=== PATIENT | female | born 1945 | race Caucasian/White ===

== ENCOUNTER → 2017-06-26 | Outpatient (CLI) | payer OTHER ==
[~2017-06-26] MED LIST: ALBU90OI INH; ALEN70 PO; ASCO500 PO; ASPI81CH PO; BUSP5 PO; Bystolic2.5 MG; CHOL10002 PO; CLON.1 PO; Hydroxyzine HCl50 MG PO; INSUASPI SC; INSULANPEN SC; KETO.5OPSO BOTHEYES; LEVSOD125 PO; LEVSOD88 PO; LORA10 PO; LOSA25 PO; Lantus100 UNIT/1 SQ; METF500 PO; NAPR500 PO; NICO14TP TOP; Novolog100 UNIT/2 SC; Omeprazole20 M1; PRAV20 PO; Pravachol80 MG PO; TRAZ100 PO; Ventolin/Prove6.7 GM INH
== END | disposition home or self-care (01) ==
LOC: LAB UCHC 11:15
DX: N39.0 Urinary tract infection, site not specified (principal)
CPT/HCPCS: 87077; 87086; 87186

== ENCOUNTER → 2017-07-04 | Outpatient (CLI) | payer OTHER ==
[2017-07-04 14:21] LABS: BASOPHILS ABSOLUTE AUTO 0.04 K/mm3 (0.00-0.23); BASOPHILS PERCENT AUTO 1 % (0-2); EOSINOPHILS ABSOLUTE AUTO 0.18 K/mm3 (0.00-0.68); EOSINOPHILS PERCENT AUTO 2 % (0-6); Hematocrit 41.7 % (33.0-51.0); Hemoglobin 13.6 g/dL (11.5-16.0); IMMATURE GRAN PERCENT AUTO 1 % (0-1); LYMPHOCYTES ABSOLUTE AUTO 2.18 K/mm3 (0.84-5.20); LYMPHOCYTES PERCENT AUTO 25 % (21-46); MONOCYTES ABSOLUTE AUTO 0.64 K/mm3 (0.16-1.47); MONOCYTES PERCENT AUTO 8 % (4-13); Mean Corpuscular HGB 29.6 pg (26.0-34.0); Mean Corpuscular HGB Conc 32.6 g/dL (31.5-36.5); Mean Corpuscular Volume 91 fL (80-100); Mean Platelet Volume 11.2 fL (9.1-12.4); NEUTROPHILS ABSOLUTE AUTO 5.44 K/mm3 (1.96-9.15); NEUTROPHILS PERCENT AUTO 63 % (41-73); Platelet Count 318 K/mm3 (150-400); RDW Coefficient Variation 14.1 % (11.7-14.2); RDW Standard Deviation 47.4 fL (35.1-46.3); White Blood Cell Count 8.58 K/mm3 (4.00-11.30)
[2017-07-04 14:35] LABS: Albumin, Blood 3.4 g/dL (3.4-5.0); Albumin/Globulin Ratio 0.9 (0.8-1.8); Bilirubin, Total 0.6 mg/dL (0.1-1.0); Bun/Creatinine Ratio 20.6 (12.0-20.0); Calcium, Blood 8.5 mg/dL (8.5-10.1); Creatinine, Blood 1.07 mg/dL (0.40-1.00); Globulin, Blood 3.6 g/dL (2.2-4.0); Potassium, Blood 4.4 mmol/L (3.5-5.5)
== END ==
LOC: LAB SHORT 13:58
PROVIDERS: Physician Assistant
DX: R53.1 Weakness (principal); N39.0 Urinary tract infection, site not specified
CPT/HCPCS: 80053; 85025; 87077; 87086; 87186

== ENCOUNTER → 2017-07-22 | Outpatient (CLI) | payer OTHER | LOC: LAB UCHC 16:11 | DX: R35.1 Nocturia (principal) | CPT/HCPCS: 87077; 87086; 87186 ==

== ENCOUNTER 2017-08-13 08:09 | Day surgery (SDC) | payer OTHER ==
[~2017-08-13] VITALS: Ht 165.1 cm; Wt 90.3 kg
== END 2017-08-13 11:40 | disposition home or self-care (01) ==
LOC: ORSCMMR 08:09
PROVIDERS: Internal Medicine Gastroenterology
PROC: 0DB48ZX Excision of Esophagogastric Junction, Via Natural or Artificial Opening Endoscopic, Diagnostic (ICD-10-PCS; principal; 2017-08-13 09:30)
PROC: 0DB68ZX Excision of Stomach, Via Natural or Artificial Opening Endoscopic, Diagnostic (ICD-10-PCS; principal; 2017-08-13 09:30)
PROC: 0DBM8ZX Excision of Descending Colon, Via Natural or Artificial Opening Endoscopic, Diagnostic (ICD-10-PCS; principal; 2017-08-13 09:30)
DX: K29.50 Unspecified chronic gastritis without bleeding (principal); R10.13 Epigastric pain; K44.9 Diaphragmatic hernia without obstruction or gangrene; R19.5 Other fecal abnormalities; D12.4 Benign neoplasm of descending colon; E11.9 Type 2 diabetes mellitus without complications; I10 Essential (primary) hypertension; E03.9 Hypothyroidism, unspecified; E78.00 Pure hypercholesterolemia, unspecified; Z79.899 Other long term (current) drug therapy; Z79.4 Long term (current) use of insulin; Z79.82 Long term (current) use of aspirin; Z87.891 Personal history of nicotine dependence
CPT/HCPCS: 82947; 87081; 88305; 88342; J0461; J7120

== ENCOUNTER → 2017-08-14 | Outpatient (CLI) | payer OTHER | LOC: LAB UCHC 14:23 | DX: N39.0 Urinary tract infection, site not specified (principal) | CPT/HCPCS: 87086 ==

== ENCOUNTER 2018-01-19 10:22 | Emergency (ER) | payer OTHER ==
[~2018-01-19] VITALS: Ht 165.1 cm; Wt 90.7 kg
[2018-01-19 10:58] LABS: BASOPHILS ABSOLUTE AUTO 0.06 K/mm3 (0.00-0.23); BASOPHILS PERCENT AUTO 1 % (0-2); EOSINOPHILS ABSOLUTE AUTO 0.16 K/mm3 (0.00-0.68); EOSINOPHILS PERCENT AUTO 2 % (0-6); Hematocrit 43.5 % (33.0-51.0); Hemoglobin 14.2 g/dL (11.5-16.0); IMMATURE GRAN ABSOLUTE AUTO 0.03 K/mm3 (0.00-0.10); IMMATURE GRAN PERCENT AUTO 0 % (0-1); LYMPHOCYTES ABSOLUTE AUTO 1.86 K/mm3 (0.84-5.20); LYMPHOCYTES PERCENT AUTO 23 % (21-46); MONOCYTES ABSOLUTE AUTO 0.68 K/mm3 (0.16-1.47); MONOCYTES PERCENT AUTO 8 % (4-13); Mean Corpuscular HGB 28.4 pg (26.0-34.0); Mean Corpuscular HGB Conc 32.6 g/dL (31.5-36.5); Mean Corpuscular Volume 87 fL (80-100); Mean Platelet Volume 10.9 fL (9.1-12.4); NEUTROPHILS ABSOLUTE AUTO 5.33 K/mm3 (1.96-9.15); NEUTROPHILS PERCENT AUTO 66 % (41-73); Platelet Count 294 K/mm3 (150-400); RDW Coefficient Variation 13.7 % (11.7-14.2); RDW Standard Deviation 43.3 fL (35.1-46.3); White Blood Cell Count 8.12 K/mm3 (4.00-11.30)
[2018-01-19 11:13] LABS: Alanine Aminotransfer (ALT/SGP 31 U/L (12-78); Albumin, Blood 3.4 g/dL (3.4-5.0); Albumin/Globulin Ratio 0.9 (0.8-1.8); Alk Phos 75 U/L (50-136); Anion Gap 11 mmol/L (6-16); Aspartate Aminotrans (AST/SGOT 26 U/L (12-37); Bilirubin, Total 0.3 mg/dL (0.1-1.0); Blood Urea Nitrogen 25 mg/dL (8-24); Bun/Creatinine Ratio 25.7 (12.0-20.0); CO2, Blood 22 mmol/L (21-32); Calcium, Blood 8.5 mg/dL (8.5-10.1); Chloride, Blood 109 mmol/L (98-108); Creatinine, Blood 0.97 mg/dL (0.40-1.00); Globulin, Blood 3.7 g/dL (2.2-4.0); Glomerular Filtration Rate 60 (60-); Glucose, Blood 191 mg/dL (70-99); Potassium, Blood 4.6 mmol/L (3.5-5.5); Sodium, Blood 142 mmol/L (136-145); Total Protein, Blood 7.1 g/dL (6.4-8.2); Troponin I <0.015 ng/mL (0.000-0.040)
== END 2018-01-19 12:30 | disposition home or self-care (01) ==
LOC: ER 10:22 → EDSTATUS 13:00
PROVIDERS: Emergency Medicine
DX: R07.9 Chest pain, unspecified (principal); J44.9 Chronic obstructive pulmonary disease, unspecified; E11.40 Type 2 diabetes mellitus with diabetic neuropathy, unspecified; E03.9 Hypothyroidism, unspecified; F32.9 Major depressive disorder, single episode, unspecified; Z91.011 Allergy to milk products; Z91.048 Other nonmedicinal substance allergy status; Z88.5 Allergy status to narcotic agent; Z79.899 Other long term (current) drug therapy; Z79.4 Long term (current) use of insulin; Z79.82 Long term (current) use of aspirin; Z87.891 Personal history of nicotine dependence
CPT/HCPCS: 36415; 71046; 80053; 83880; 84484; 85025; 93005; 93010; 93306; 99285-25

== ENCOUNTER → 2018-12-14 | Outpatient (CLI) | payer OTHER ==
[~2018-12-14] MED LIST changes: +Flonase 0.05% N16 GM; -INSUASPI SC; +LORA.5 PO; +NITR100CA PO; +Novolog100 UNIT/1 SC; +OXYC5; +OXYC5 PO; +SPIR25 PO
[2018-12-14 19:52] LABS: BASOPHILS ABSOLUTE AUTO 0.09 K/mm3 (0.00-0.23); BASOPHILS PERCENT AUTO 1 % (0-2); EOSINOPHILS ABSOLUTE AUTO 0.11 K/mm3 (0.00-0.68); EOSINOPHILS PERCENT AUTO 1 % (0-6); Hematocrit 44.1 % (33.0-51.0); Hemoglobin 14.7 g/dL (11.5-16.0); IMMATURE GRAN ABSOLUTE AUTO 0.04 K/mm3 (0.00-0.10); IMMATURE GRAN PERCENT AUTO 0 % (0-1); LYMPHOCYTES ABSOLUTE AUTO 2.59 K/mm3 (0.84-5.20); LYMPHOCYTES PERCENT AUTO 27 % (21-46); MONOCYTES ABSOLUTE AUTO 0.77 K/mm3 (0.16-1.47); MONOCYTES PERCENT AUTO 8 % (4-13); Mean Corpuscular HGB 30.1 pg (26.0-34.0); Mean Corpuscular HGB Conc 33.3 g/dL (31.5-36.5); Mean Corpuscular Volume 90 fL (80-100); Mean Platelet Volume 12.5 fL (9.1-12.4); NEUTROPHILS ABSOLUTE AUTO 5.95 K/mm3 (1.96-9.15); NEUTROPHILS PERCENT AUTO 62 % (41-73); Platelet Count 267 K/mm3 (150-400); RDW Coefficient Variation 13.2 % (11.7-14.2); RDW Standard Deviation 43.4 fL (35.1-46.3); Red Blood Cell Count 4.88 M/mm3 (3.80-5.20); White Blood Cell Count 9.55 K/mm3 (4.00-11.30)
[2018-12-14 20:15] LABS: Albumin, Blood 3.7 g/dL (3.4-5.0); Bilirubin, Total 0.3 mg/dL (0.1-1.0); Bun/Creatinine Ratio 19.9 (12.0-20.0); Calcium, Blood 8.9 mg/dL (8.5-10.1); Creatinine, Blood 1.56 mg/dL (0.40-1.00); Globulin, Blood 3.6 g/dL (2.2-4.0); Potassium, Blood 4.2 mmol/L (3.5-5.5); Total Protein, Blood 7.3 g/dL (6.4-8.2)
== END | disposition home or self-care (01) ==
LOC: LAB SHORT 19:34 → LAB 19:34
PROVIDERS: Physician Assistant
DX: I95.9 Hypotension, unspecified (principal); R30.0 Dysuria
CPT/HCPCS: 80053; 85025; 87077; 87086; 87186

== ENCOUNTER → 2018-12-23 | Outpatient (CLI) | payer OTHER ==
[2018-12-23 11:49] LABS: Albumin, Blood 3.7 g/dL (3.4-5.0); Bilirubin, Total 0.4 mg/dL (0.1-1.0); Calcium, Blood 9.5 mg/dL (8.5-10.1); Creatinine, Blood 1.11 mg/dL (0.40-1.00); Globulin, Blood 3.7 g/dL (2.2-4.0); Potassium, Blood 4.2 mmol/L (3.5-5.5); Total Protein, Blood 7.4 g/dL (6.4-8.2)
== END | disposition home or self-care (01) ==
LOC: LAB SHORT 11:09 → LAB 11:09
PROVIDERS: Physician Assistant
DX: R10.11 Right upper quadrant pain (principal)
CPT/HCPCS: 80053

== ENCOUNTER 2019-02-09 06:44 | Inpatient (IN) | payer OTHER ==
[~2019-02-09] VITALS: Ht 167.6 cm; Wt 92.7 kg
[~2019-02-09 06:44] MED LIST changes: -OXYC5; -OXYC5 PO
--- NOTE | 2019-02-09 07:58 | NUR ---
Ambulatory in Day Surgery History, Chart, Medications and Allergies reviewed before start of procedure.Patient confirms NPO status and agrees with scheduled surgery. Patient reports completing Chlorhexadine shower X2 prior to admission to hospital.Surgical site prepped with 2% Chlorhexidine cloth wipe.
--- NOTE | 2019-02-09 10:06 | NUR ---
02/09/19 Bianca5 Emani Lopez CASE WENT OPEN AT 0905. ALL COUNTS CORRECT.
--- NOTE | 2019-02-09 19:06 | NUR ---
SHIFT SUMMARY PT POD 0 OPEN JASSI. PT REPORTS GOOD PAIN RELIEF WITH TYLENOL AND TORADOL, DID NOT FEEL ROXICODONE HELPED VERY MUCH. 1 ASSIST TO BATHROOM. UP TO CHAIR. IV ABX PER EMAR. PT TOLERATED REGULAR DIET WITH NO C/O N/V.
--- NOTE | 2019-02-10 03:30 | NUR ---
SHIFT NOTE PATIENT UP IN CHAIR AT THE BEGINNING OF SHIFT. SHE DOES WELL GETTING UP FOR TOILETING WITH ONE PERSON ASSIST SBA. PATIENT ABDOMEN HAS HYPOACTIVE BT'S, IS SEVERELY DESTENDED AND PAINFUL WITH MOVEMENT. SHE IS ABLE TO REPOSTITION HERSELF IN THE BED TO POC. @0320 VS SHOWED AN O2 SAT OF 75% ON RA. PATIENT WAS ASKED TO SPLINT ABDOMEN AND COUGH AND DEEPBREATH. THIS BROUGHT THE SATS TO 82%, 2L NC-85%. RT NOTIFIED OF THE SATURATIONS, UDN AND O2 UP TO 4L WITH 92%.
--- NOTE | 2019-02-10 07:15 | NUR ---
recvd report from previous RN Lashanda, pt lying awake in bed, a/o x 4, bed in lowest position, bed rails up x 2, call light within reach
--- NOTE | 2019-02-10 18:39 | NUR ---
SHIFT SUMMARY: VSS, NO ACUTE CHANGES. PT TOLERATED PO INTAKE WITH NO N/V. PT UP TO CHAIR FOR MEALS, AMBULATED IN HALLWAY X 1, SHOWERED TODAY. PT STATES PAIN CONTROLLED PER AUG. PT HAS BEGUN TO PASS FLATUS. DR MA ROUNDING ON PT THIS AFTERNOON. PT REMAINED A/O X 4, PLEASANT/COOPERATIVE. BT REMAIN HYPOACTIVE, BUT IS SIGNIFICANTLY LESS DISTENDED END OF SHIFT FROM BEGINNING OF SHIFT.
--- NOTE | 2019-02-11 01:29 | NUR ---
PT WITH INCREASED 02 REQUIREMENT NOTED WITH CONT PULSE OX. PT INITIALLY 91 % WHILE RESTING ON R SIDE.WHEN RT ARRIVED AND PLACED CONT BIOX, INITIALLY PT WAS RESTING ON L SIDE AND 4 L SATS WERE 88% RT ADJUSTED FLOW TO 5 L THEN PLACED ON HIGH FLOW NC @ 6 L TO MAINTAIN 90 %. I CALLED DR WOODARD AND ADVISED OF ABOVE WELL DISCUSSED PT REPORTS DOES NOT USE 02 AT HOME.PT REPORTS HX EMPHYSEMA BUT DENIES SLEEP APNEA ALTHOUGH 2 DIFFERENT HX NOTES MENTION SLEEP APNEA. ALSO ADVISED DR PT SEEMS TO HAVE LOWER SATS WHEN RESTING ON L SIDE.DOCTOR GAVE ORDER FOR TITRATION OF O2 PER HIGH FLOW CANNULA TONITE OK TO MAINTAIN SATS 90 % OR GREATER. PT WITH NO C/O SOB OR CP.
--- NOTE | 2019-02-11 06:01 | NUR ---
SUMMARY PT REPORTS SHE FEELS BETTER THIS AM.EMESIS X1 ONLY DURING THIS SHIFT. BP IMPROVING.
--- NOTE | 2019-02-11 06:05 | NUR ---
SUMMARY PT REMAINS ON 6 L PER HIGH FLOW CANNULA. MAINTAINING 90% AND ABOVE.CONTINUES WITHUT C/O CP OR SOB. TAKING ROXICODONE 1 PO FOR PAIN. DOES NOT WANT 2 IT MAKES HER "SLEEPY".
--- NOTE | 2019-02-11 13:24 | NUR ---
PT REFUSING TO AMBULATE IN HALLS W/RN MILITARY.
--- NOTE | 2019-02-11 16:34 | NUR ---
02 REQUIREMENTS DISCUSSED PT'S NEED FOR 6L 02 W/DR MA. ORDERS OBTAINED.
--- NOTE | 2019-02-11 17:14 | NUR ---
SUMMARY PT ON 6L 02 T/O SHIFT W/SATS RANGING 90-94%. HOME O2 EVAL BEING PERFORMED AT THIS TIME. CHEST XR COMPLETED PER ORDERS. PT IS VERY PAINFUL W/MOVEMENT. MEDICATED T/O SHIFT PER ORDERS. PT AMBULATES TO RESTROOM AND BACK. DRESSING TO R ABD AND UMBILICUS CDI. ABD BINDER IN PLACE. PT USES CALL LIGHT APPROPRIATELY.
--- NOTE | 2019-02-12 06:20 | NUR ---
SUMMARY PT REQUIRING ILAN 2 PO FOR PAIN CONTROL TO ALLOW FOR ACTIVITY. CONT ON 02. SATS MAINTAINED GREATER THAN 90%. PT WITHOUT C/O SOB ALTHOUGH APPEARING SLIGHT SOB WITH ACTIVITY. PT REPORTING THIS PAIN NOT SOB.DAY RN REPORTED HOME O2 IS BEING WORKED ON.
[2019-02-12] MEDS ORDERED: OXYC5 (11:27)
[2019-02-12] MEDS ORDERED: OXYC5 PO (11:28)
--- NOTE | 2019-02-12 14:22 | NUR ---
DISCHARGED REVIEWED DC PAPERWORK W/PT AND DAUGHTER; BOTH VERBLALIZED UNDERSTANDING. DC'D IV, CATHETER INTACT. PT SWITCHED TO HOME O2. LEFT UNIT IN WC W/POSSESSIONS AND DC INSTRUCTIONS IN WC ACCOMPANIED BY DAUGHTER AND GRANDSON.
== END 2019-02-12 14:00 | disposition home or self-care (01) | DRG 415 ==
LOC: ORSCMMR 06:44 → ORD 08:15 → SURS 10:20 → ORSCMMR 10:20 → SURS 11:39
PROVIDERS: ADMIT Surgery
PROC: 0FT40ZZ Resection of Gallbladder, Open Approach (ICD-10-PCS; principal; 2019-02-09 08:15)
PROC: 0FJ44ZZ Inspection of Gallbladder, Percutaneous Endoscopic Approach (ICD-10-PCS; 2019-02-09 08:15)
DX: K80.10 Calculus of gallbladder with chronic cholecystitis without obstruction (principal); J96.11 Chronic respiratory failure with hypoxia; K82.8 Other specified diseases of gallbladder; E11.319 Type 2 diabetes mellitus with unspecified diabetic retinopathy without macular edema; E11.22 Type 2 diabetes mellitus with diabetic chronic kidney disease; I12.9 Hypertensive chronic kidney disease with stage 1 through stage 4 chronic kidney disease, or unspecified chronic kidney disease; N18.9 Chronic kidney disease, unspecified; K21.9 Gastro-esophageal reflux disease without esophagitis; E78.00 Pure hypercholesterolemia, unspecified; E03.9 Hypothyroidism, unspecified; J44.9 Chronic obstructive pulmonary disease, unspecified; Z79.4 Long term (current) use of insulin; Z79.51 Long term (current) use of inhaled steroids; Z79.899 Other long term (current) drug therapy; Z88.5 Allergy status to narcotic agent; Z88.2 Allergy status to sulfonamides; Z88.8 Allergy status to other drugs, medicaments and biological substances; Z87.891 Personal history of nicotine dependence; Z53.31 Laparoscopic surgical procedure converted to open procedure
CPT/HCPCS: 36600; 71046; 82803; 82947; 88304; 94060; 94640; 94726; 94729; 94760; 94761; 94762; A9270; J0690; J1650; J1885; J2405; J2704; J3010; J7030; J7120

== ENCOUNTER → 2019-12-06 | Outpatient (CLI) | payer OTHER ==
[~2019-12-06] MED LIST changes: +BASAGLAR K100 UNIT/1 SC; +CEFD300 PO; -Lantus100 UNIT/1 SQ; +OXYC5; +OXYC5 PO
== END | disposition home or self-care (01) ==
LOC: LAB SHORT 18:38 → LAB 18:38
DX: R10.9 Unspecified abdominal pain (principal)
CPT/HCPCS: 87086

== ENCOUNTER → 2020-01-20 | Outpatient (CLI) | payer OTHER ==
[~2020-01-20] MED LIST changes: +ACET500 PO; +CALCIUM-MAGNES1 EAC9 PO; +ECONAZOLE NITRA30 GM TOP; +HYDPAM50 PO; +LABE100 PO; +OMEGA 3 1,0001 EACH PO
[2020-01-20 13:44] LABS: BASOPHILS ABSOLUTE AUTO 0.11 K/mm3 (0.00-0.23); BASOPHILS PERCENT AUTO 1 % (0-2); EOSINOPHILS ABSOLUTE AUTO 0.15 K/mm3 (0.00-0.68); EOSINOPHILS PERCENT AUTO 2 % (0-6); Hematocrit 41.8 % (33.0-51.0); Hemoglobin 13.5 g/dL (11.5-16.0); IMMATURE GRAN ABSOLUTE AUTO 0.03 K/mm3 (0.00-0.10); IMMATURE GRAN PERCENT AUTO 0 % (0-1); LYMPHOCYTES ABSOLUTE AUTO 1.86 K/mm3 (0.84-5.20); LYMPHOCYTES PERCENT AUTO 22 % (21-46); MONOCYTES ABSOLUTE AUTO 0.65 K/mm3 (0.16-1.47); MONOCYTES PERCENT AUTO 8 % (4-13); Mean Corpuscular HGB 29.4 pg (26.0-34.0); Mean Corpuscular HGB Conc 32.3 g/dL (31.5-36.5); Mean Corpuscular Volume 91 fL (80-100); Mean Platelet Volume 12.9 fL (9.1-12.4); NEUTROPHILS ABSOLUTE AUTO 5.81 K/mm3 (1.96-9.15); NEUTROPHILS PERCENT AUTO 68 % (41-73); Platelet Count 246 K/mm3 (150-400); RDW Coefficient Variation 14.5 % (11.7-14.2); RDW Standard Deviation 48.6 fL (35.1-46.3); Red Blood Cell Count 4.59 M/mm3 (3.80-5.20); White Blood Cell Count 8.61 K/mm3 (4.00-11.30)
[2020-01-20 14:58] LABS: Albumin, Blood 3.3 g/dL (3.4-5.0); Albumin/Globulin Ratio 0.8 (0.8-1.8); Bilirubin, Total 0.6 mg/dL (0.1-1.0); Bun/Creatinine Ratio 27.2 (12.0-20.0); Creatinine, Blood 1.03 mg/dL (0.40-1.00); Potassium, Blood 4.6 mmol/L (3.5-5.5); Total Protein, Blood 7.3 g/dL (6.4-8.2)
== END ==
LOC: LAB 12:43 → LAB SHORT 12:43
PROVIDERS: Physician Assistant
DX: K80.50 Calculus of bile duct without cholangitis or cholecystitis without obstruction (principal)
CPT/HCPCS: 80053; 85025

== ENCOUNTER → 2022-02-01 | Outpatient (CLI) | payer OTHER | LOC: LAB 15:39 → LAB SHORT 15:39 | DX: N39.0 Urinary tract infection, site not specified (principal) | CPT/HCPCS: 87077; 87086; 87186 ==

== ENCOUNTER → 2022-04-03 | Outpatient (CLI) | payer OTHER ==
[2022-04-03 19:41] LABS: Creatinine Urine 41.7 mg/dL (27.00-270.00); Protein, Urine Quantitative 39.2 mg/dL (0.0-11.9)
== END | disposition home or self-care (01) ==
LOC: LAB 12:23 → LAB SHORT 12:23
PROVIDERS: Internal Medicine Nephrology
DX: N18.30 Chronic kidney disease, stage 3 unspecified (principal); D63.1 Anemia in chronic kidney disease; N25.81 Secondary hyperparathyroidism of renal origin; E55.9 Vitamin D deficiency, unspecified; E78.00 Pure hypercholesterolemia, unspecified; R76.9 Abnormal immunological finding in serum, unspecified; R94.5 Abnormal results of liver function studies; R94.6 Abnormal results of thyroid function studies
CPT/HCPCS: 81050; 82043; 82570; 84156

== ENCOUNTER → 2022-10-01 | Outpatient (CLI) | payer OTHER | END | disposition home or self-care (01) | LOC: LAB 08:15 → LAB SHORT 08:15 | DX: R53.83 Other fatigue (principal); R10.13 Epigastric pain | CPT/HCPCS: 87338 ==

== ENCOUNTER 2022-12-05 08:31 | Inpatient (IN) | payer OTHER ==
[~2022-12-05] VITALS: Ht 167.6 cm; Wt 95.1 kg
[2022-12-05] VITALS (8 sets, daily range): BP systolic 120–158; BP diastolic 43–63
[2022-12-05] MEDS ORDERED: SEMGLEE (Y100 UNIT/1 SC (09:59)
[2022-12-05] MEDS ORDERED: FAMO20 PO (10:01)
[2022-12-05] MEDS ORDERED: FUROSEMIDE20 MG PO (10:02)
[2022-12-05] MEDS ORDERED: BACLOFEN10 M4 PO (10:03)
[2022-12-05] MEDS ORDERED: METOPROLOL TART25 MG PO (10:04)
[2022-12-05] MEDS ORDERED: RANOLAZINE ER500 M2 PO (10:05)
[2022-12-05 10:07] LABS: BASOPHILS ABSOLUTE AUTO 0.04 K/mm3 (0.00-0.23); BASOPHILS PERCENT AUTO 0 % (0-2); EOSINOPHILS ABSOLUTE AUTO 0.01 K/mm3 (0.00-0.68); EOSINOPHILS PERCENT AUTO 0 % (0-6); Hematocrit 42.6 % (33.0-51.0); Hemoglobin 14.3 g/dL (11.5-16.0); IMMATURE GRAN ABSOLUTE AUTO 0.03 K/mm3 (0.00-0.10); IMMATURE GRAN PERCENT AUTO 0 % (0-1); LYMPHOCYTES ABSOLUTE AUTO 0.77 K/mm3 (0.84-5.20); LYMPHOCYTES PERCENT AUTO 7 % (21-46); MONOCYTES ABSOLUTE AUTO 0.44 K/mm3 (0.16-1.47); MONOCYTES PERCENT AUTO 4 % (4-13); Mean Corpuscular HGB Conc 33.6 g/dL (31.5-36.5); Mean Corpuscular Volume 89 fL (80-100); Mean Platelet Volume 11.4 fL (9.1-12.4); NEUTROPHILS ABSOLUTE AUTO 9.64 K/mm3 (1.96-9.15); NEUTROPHILS PERCENT AUTO 88 % (41-73); Platelet Count 220 K/mm3 (150-400); RDW Standard Deviation 42.5 fL (35.1-46.3); Red Blood Cell Count 4.77 M/mm3 (3.80-5.20); White Blood Cell Count 10.93 K/mm3 (4.00-11.30)
[2022-12-05 10:28] LABS: Albumin, Blood 3.3 g/dL (3.4-5.0); Albumin/Globulin Ratio 0.8 (0.8-1.8); Bilirubin, Total 0.9 mg/dL (0.1-1.0); Bun/Creatinine Ratio 19.6 (12.0-20.0); Creatinine, Blood 1.43 mg/dL (0.40-1.00); Globulin, Blood 3.9 g/dL (2.2-4.0); Potassium, Blood 4.8 mmol/L (3.5-5.5); Total Protein, Blood 7.2 g/dL (6.4-8.2)
[2022-12-05 11:39] LABS: International Normalized Ratio 1.06; Prothrombin Time Results 11.1 Sec (9.7-11.5)
[2022-12-05 11:58] LABS: CHOL/HDL RATIO 4.7; Cholesterol 177 mg/dL (50-200); HDL Cholesterol 38 mg/dL (>39); LDL/HDL RATIO 2.9; Low Density Lipoprotein Chol 108 mg/dL (0-110); Triglycerides 153 mg/dL (30-160); Very Low Density Lipoprot Chol 30 mg/dL (6-32)
--- NOTE | 2022-12-05 14:30 | NUR ---
PT ARRIVAL... PT ARRIVED FROM THE ER AND WAS ABLE TO SELF TRANSFER FROM THE GURNEY TO THE BED. PT DENIES ANY CHEST PAIN AT THIS TIME. HEPARIN GTT RUNNING PER ORDERS. SHE IS IN SB/SR 40'S-60'S BP IS STABLE WITH MAPS >65. NO EDEMA NOTED ON ASSESSMENT. L/S CLEAR AND DIM T/O SHE IS ON 2L NC WITH O2 SATS >95%. WILL CONTINUE TO MONITOR.
--- NOTE | 2022-12-05 17:22 | NUR ---
SHIFT SUMMARY.... NO ACUTE NEGATIVE CHANGES NOTED THIS SHIFT. DR. PEPPER AT THE BEDSIDE TO ASSESS THE PT, IF PT AGREES TO AN ANGIO TOMORROW PT IS TO BE NPO AFTER MIDNIGHT. PT'S VS HAVE BEEN STABLE AND PT DENIES ANY CHEST PAIN SINCE ADMIT. PT'S HR HAS BEEN IN THE HIGH 40'S-60'S BP'S STABLE. HEPARIN GTT IS RUNNING PER ORDERS. CALL LIGHT IN REACH WILL CONTINUE TO MONITOR UNTIL REPORT IS GIVEN TO ON COMING RN.
--- NOTE | 2022-12-05 19:16 | NUR ---
ASSUMED CARE OF PT AT 1900. REPORT RECIEVED AT BEDSIDE. PT PRESENTS IN BED. SPEAKING WITH SOMEONE ON TELEPHONE. PT IN NO APPARENT DISTRESS. HEPARIN DRIP VERIFIED WITH OFFGOING RN.
--- NOTE | 2022-12-05 22:23 | NUR ---
PT COMPLAINS OF "GAS" WHICH SHE STATES IS AN ONGOING ISSUE. ORDER FOR GAS-X WHICH HAS BEEN GIVEN. PT REMAINS ALERT AND ORIENTED. NO COMPLAINTS OF CHEST PAIN OR PRESSURE. USING O2 AT 2 L/M WHAT SHE USES AT HOME. WILL CONTINUE TO MONITOR PT.
[2022-12-06] VITALS (14 sets, daily range): BP systolic 114–164; BP diastolic 34–96
[2022-12-06 02:40] LABS: Alanine Aminotransfer (ALT/SGP 20 U/L (12-78); Albumin, Blood 2.8 g/dL (3.4-5.0); Albumin/Globulin Ratio 0.8 (0.8-1.8); Alk Phos 48 U/L (50-136); Anion Gap 4 mmol/L (6-16); Aspartate Aminotrans (AST/SGOT 19 U/L (12-37); Bilirubin, Total 0.4 mg/dL (0.1-1.0); Blood Urea Nitrogen 27 mg/dL (8-24); Bun/Creatinine Ratio 19.9 (12.0-20.0); CHOL/HDL RATIO 4.2; CO2, Blood 27 mmol/L (21-32); Calcium, Blood 7.8 mg/dL (8.5-10.1); Chloride, Blood 108 mmol/L (98-108); Cholesterol 133 mg/dL (50-200); Creatinine, Blood 1.36 mg/dL (0.40-1.00); Globulin, Blood 3.3 g/dL (2.2-4.0); Glomerular Filtration Rate 40 (60-); Glucose, Blood 275 mg/dL (70-99); HDL Cholesterol 32 mg/dL (>39); LDL/HDL RATIO 1.9; Low Density Lipoprotein Chol 59 mg/dL (0-110); Potassium, Blood 4.6 mmol/L (3.5-5.5); Sodium, Blood 139 mmol/L (136-145); Total Protein, Blood 6.1 g/dL (6.4-8.2); Triglycerides 209 mg/dL (30-160); Very Low Density Lipoprot Chol 41 mg/dL (6-32)
--- NOTE | 2022-12-06 05:35 | NUR ---
PT CONTINUES TO BE WITHOUT CHEST PAIN OR PRESSURE. HAS BEEN INDEPENDENT IN BED WITH TURNS. CONTINUES ON HEPARIN DRIP. NO S/S BLEEDING. WILL CONTINUE TO MONITOR PT, AND WILL REPORT OFF TO ONCOMING RN.
--- NOTE | 2022-12-06 07:00 | NUR ---
ASSUMPTION OF CARE PT RECEIVING HEPARIN 15UNITS/KG/HR AND VERIFIED WITH CHRISTIAN JOHNSON. PT IS ALERT AND ORIENTED. SHE DENIES CP OR CHEST DISCOMFORT. SHE DOES HAVE MINIMAL GI UPSET BUT DENIES MEDICATION FOR NAUSEA. SHE IS SINUS SLOANE ON MONITOR WITH RATE 50-54. SBP 110S, DBP 30S-40S. DR PEPPER AND HOSPITALIST ROUNDED. PLAN FOR ANGIOGRAM THIS AFTERNOON. BED IN LOW POSITION AND CALL LIGHT WITHIN REACH.
--- NOTE | 2022-12-06 13:36 | NUR ---
Pt. is awake in bed and welcomes my visit. Pt. is very pleasant. Facilitate a life review and establishe rapport. Considered matters of sue and belief. Pt. displays evidence of being mildly concerned about her upcoming heart procedure. Listen with empathy, interest and a calming spirit. Prayed with Pt. Pt. verbalized gratitude for the spiritual care visit.
--- NOTE | 2022-12-06 13:59 | NUR ---
BUDGET EXAMINER PT LEFT WITH BUDGET EXAMINER STAFF AT APPROX 1130. PT RETURNED AT APPROX 1230 WITH R RADIAL TR BAND IN PLACE. SITE IS SOFT, NONTENDER, NO SIGNS OF BLEEDING. PT REMAINS ALERT AND ORIENTED WITH PLEASANT AFFECT. PT DENIES CP. VSS AT THIS TIME. PT CURRENTLY TALKING TO DAUGHTER ON CELL PHONE. BED IN LOW POSITION AND CALL LIGHT WITHIN REACH.
[2022-12-06] MEDS ORDERED: ASPI81CH PO (18:55)
[2022-12-06] MEDS ORDERED: NOVOLOG FL100 UNIT/3 (18:56)
[2022-12-06] MEDS ORDERED: INSULIN GL100 UNIT/2 (18:57)
--- NOTE | 2022-12-06 19:47 | NUR ---
DISCHARGE PT AND PT'S DAUGHTER VARUN PROVIDED DISCHARGE INSTRUCTIONS AND EDUCATION. PRESCRIPTIONS FAXED TO [facility] PER PT REQUEST. R RADIAL SITE HAS CLEAR TEGADERM IN PLACE. AREA SOFT, NONTENDER, NO BLEEDING. ARMBOARD IN PLACE. ALL BELONGINGS TAKEN BY DAUGHTER. PT ASSISTED BY WHEELCHAIR TO CAR. PT AND DAUGHTER DENY ADDITIONAL QUESTIONS AT THIS TIME. PT LEFT DEPARTMENT AT 1935.
== END 2022-12-06 19:35 | disposition home or self-care (01) | DRG 281 ==
LOC: ER 08:31 → ICUE 11:30 → ERHOLD 11:30 → ER 11:30 → ICUE 14:35 → ERHOLD 14:35 → ICUE 12-06 10:22
PROVIDERS: Emergency Medicine; Family Medicine; ADMIT Hospitalist
PROC: 4A023N7 Measurement of Cardiac Sampling and Pressure, Left Heart, Percutaneous Approach (ICD-10-PCS; principal; 2022-12-06)
PROC: B2111ZZ Fluoroscopy of Multiple Coronary Arteries using Low Osmolar Contrast (ICD-10-PCS; 2022-12-06)
PROC: B24BZZ3 Ultrasonography of Heart with Aorta, Intravascular (ICD-10-PCS; 2022-12-06)
DX: I21.4 Non-ST elevation (NSTEMI) myocardial infarction (principal); I42.1 Obstructive hypertrophic cardiomyopathy; I47.1 Supraventricular tachycardia; I12.9 Hypertensive chronic kidney disease with stage 1 through stage 4 chronic kidney disease, or unspecified chronic kidney disease; E78.5 Hyperlipidemia, unspecified; R00.1 Bradycardia, unspecified; E11.22 Type 2 diabetes mellitus with diabetic chronic kidney disease; E03.9 Hypothyroidism, unspecified; E66.9 Obesity, unspecified; M81.0 Age-related osteoporosis without current pathological fracture; N18.9 Chronic kidney disease, unspecified; K21.9 Gastro-esophageal reflux disease without esophagitis; K76.0 Fatty (change of) liver, not elsewhere classified; G47.33 Obstructive sleep apnea (adult) (pediatric); J44.9 Chronic obstructive pulmonary disease, unspecified; K59.09 Other constipation; E05.90 Thyrotoxicosis, unspecified without thyrotoxic crisis or storm; I34.0 Nonrheumatic mitral (valve) insufficiency; Z86.16 Personal history of COVID-19; Z99.89 Dependence on other enabling machines and devices; Z86.010 Personal history of colon polyps; Z87.891 Personal history of nicotine dependence; Z79.890 Hormone replacement therapy; Z79.4 Long term (current) use of insulin; Z90.49 Acquired absence of other specified parts of digestive tract; Z88.8 Allergy status to other drugs, medicaments and biological substances; Z88.5 Allergy status to narcotic agent; Z88.2 Allergy status to sulfonamides; Z91.048 Other nonmedicinal substance allergy status; Z79.899 Other long term (current) drug therapy
CPT/HCPCS: 36415; 71046; 76937; 80053; 80061; 82947; 83036; 83690; 84484; 85025; 85520; 85610; 85730; 93005; 93010; 93306; 93454; 96361; 96374; 96376; 99152; 99285-25; A9270; C1769; C1887; C1894; G0378; J1644; J1815; J2250; J3010; J7030; J7050; J7120; Q9967

== ENCOUNTER 2023-03-01 13:15 | Emergency (ER) | payer OTHER ==
[~2023-03-01] VITALS: Ht 167.6 cm; Wt 96.6 kg
[~2023-03-01 13:15] MED LIST changes: +BACLOFEN10 M4 PO; +FAMO20 PO; +FUROSEMIDE20 MG PO; +INSULIN GL100 UNIT/2; +METOPROLOL TART25 MG PO; +NOVOLOG FL100 UNIT/3; +RANOLAZINE ER500 M2 PO; +SEMGLEE (Y100 UNIT/1 SC
[2023-03-01 13:44] VITALS: BP 120/78
[2023-03-01 14:06] LABS: BASOPHILS ABSOLUTE AUTO 0.07 K/mm3 (0.00-0.23); BASOPHILS PERCENT AUTO 1 % (0-2); EOSINOPHILS ABSOLUTE AUTO 0.21 K/mm3 (0.00-0.68); EOSINOPHILS PERCENT AUTO 3 % (0-6); Hematocrit 41.6 % (33.0-51.0); Hemoglobin 14.5 g/dL (11.5-16.0); IMMATURE GRAN ABSOLUTE AUTO 0.04 K/mm3 (0.00-0.10); IMMATURE GRAN PERCENT AUTO 1 % (0-1); LYMPHOCYTES ABSOLUTE AUTO 2.13 K/mm3 (0.84-5.20); LYMPHOCYTES PERCENT AUTO 27 % (21-46); MONOCYTES PERCENT AUTO 10 % (4-13); Mean Corpuscular HGB Conc 34.9 g/dL (31.5-36.5); Mean Corpuscular Volume 89 fL (80-100); Mean Platelet Volume 11.1 fL (9.1-12.4); NEUTROPHILS ABSOLUTE AUTO 4.77 K/mm3 (1.96-9.15); NEUTROPHILS PERCENT AUTO 59 % (41-73); Platelet Count 238 K/mm3 (150-400); RDW Coefficient Variation 12.7 % (11.7-14.2); RDW Standard Deviation 41.3 fL (35.1-46.3); Red Blood Cell Count 4.68 M/mm3 (3.80-5.20); White Blood Cell Count 8.02 K/mm3 (4.00-11.30)
[2023-03-01 14:30] LABS: Albumin, Blood 3.5 g/dL (3.4-5.0); Bilirubin, Total 0.4 mg/dL (0.1-1.0); Bun/Creatinine Ratio 21.4 (12.0-20.0); Calcium, Blood 9.1 mg/dL (8.5-10.1); Creatinine, Blood 1.45 mg/dL (0.40-1.00); Globulin, Blood 3.5 g/dL (2.2-4.0); Potassium, Blood 4.5 mmol/L (3.5-5.5)
== END 2023-03-01 15:23 | disposition left against medical advice (07) ==
LOC: ER 13:15
PROVIDERS: Physician Assistant
DX: Z53.21 Procedure and treatment not carried out due to patient leaving prior to being seen by health care provider (principal); R07.9 Chest pain, unspecified
CPT/HCPCS: 71046; 80053; 83880; 84484; 85025; 93005; 93010; 99282-25

== ENCOUNTER → 2023-03-04 | Outpatient (CLI) | payer OTHER | END | disposition home or self-care (01) | LOC: LAB 12:00 → LAB SHORT 12:00 | DX: N39.0 Urinary tract infection, site not specified (principal) | CPT/HCPCS: 87077; 87086; 87186 ==

== ENCOUNTER → 2023-04-15 | Outpatient (CLI) | payer OTHER | LOC: LAB 17:53 → LAB SHORT 17:53 | DX: R30.0 Dysuria (principal) | CPT/HCPCS: 87077; 87086; 87186 ==

== ENCOUNTER → 2023-05-23 | Outpatient (CLI) | payer OTHER | LOC: LAB SHORT 12:37 → LAB 12:37 | DX: R30.0 Dysuria (principal) | CPT/HCPCS: 87077; 87086; 87186 ==

== ENCOUNTER → 2023-06-28 | Outpatient (CLI) | payer OTHER | LOC: LAB SHORT 11:15 → LAB 11:15 | DX: N39.0 Urinary tract infection, site not specified (principal) | CPT/HCPCS: 87077; 87086; 87186 ==

== ENCOUNTER → 2023-08-05 | Outpatient (CLI) | payer OTHER | LOC: LAB SHORT 15:24 → LAB 15:24 | DX: N39.0 Urinary tract infection, site not specified (principal) | CPT/HCPCS: 87077; 87086; 87186 ==

== ENCOUNTER → 2024-01-05 | Outpatient (CLI) | payer OTHER | LOC: LAB 15:57 → LAB SHORT 15:57 | DX: N39.0 Urinary tract infection, site not specified (principal) | CPT/HCPCS: 87086 ==

== ENCOUNTER → 2024-02-20 | Outpatient (CLI) | payer OTHER | END | disposition home or self-care (01) | LOC: LAB 15:40 → LAB SHORT 15:40 | DX: N39.0 Urinary tract infection, site not specified (principal) | CPT/HCPCS: 87086 ==

== ENCOUNTER → 2024-04-22 | Outpatient (CLI) | payer OTHER | LOC: LAB SHORT 16:03 → LAB 16:03 | DX: N39.0 Urinary tract infection, site not specified (principal) | CPT/HCPCS: 87077; 87086; 87186 ==

== ENCOUNTER → 2024-09-08 | Outpatient (CLI) | payer OTHER | LOC: LAB SHORT 18:36 → LAB 18:36 | DX: N39.0 Urinary tract infection, site not specified (principal) | CPT/HCPCS: 87077; 87086; 87186 ==

== ENCOUNTER → 2024-11-05 | Outpatient (CLI) | payer OTHER | LOC: LAB SHORT 18:21 → LAB 18:21 | DX: N39.0 Urinary tract infection, site not specified (principal) | CPT/HCPCS: 87077; 87086; 87186 ==

== ENCOUNTER → 2024-11-09 | Outpatient (CLI) | payer OTHER | LOC: LAB 17:37 → LAB SHORT 17:37 | DX: B35.2 Tinea manuum (principal); B35.1 Tinea unguium; L60.2 Onychogryphosis | CPT/HCPCS: 87102; 87210; 88305; 88312 ==

== ENCOUNTER 2025-01-07 19:28 | Emergency (ER) | payer OTHER ==
[~2025-01-07] VITALS: Ht 167.6 cm; Wt 95.2 kg
[~2025-01-07 19:28] MED LIST changes: -CIPR250 PO
[2025-01-07 20:34] LABS: Source, Urine Clean Catch
[2025-01-07 20:39] LABS: Bilirubin, Urine Neg (Neg); Glucose Qualitative, Urine 3+ (Neg); Ketones, Urine Neg (Neg); Leukocyte Esterase, Urine 3+ (Neg); Protein, Urine 2+ (Neg); Specific Gravity, Urine 1.020 (1.003-1.022); Urobilinogen, Urine NORM (Normal)
[2025-01-07 20:44] LABS: Color, Urine Pale Yellow (P-Yellow)
[2025-01-07 21:00] LABS: Alanine Aminotransfer (ALT/SGP 24.0 U/L (12-78); Albumin, Blood 3.4 g/dL (3.4-5.0); Albumin/Globulin Ratio 0.8 (0.8-1.8); Anion Gap 6.0 mmol/L (3-11); Aspartate Aminotrans (AST/SGOT 20.0 U/L (12-37); Bilirubin, Total 0.4 mg/dL (0.1-1.0); Blood Urea Nitrogen 28.0 mg/dL (8-24); CO2, Blood 29.0 mmol/L (21-32); Calcium, Blood 9.0 mg/dL (8.5-10.1); Chloride, Blood 105.0 mmol/L (98-108); Creatinine, Blood 1.31 mg/dL (0.40-1.00); Globulin, Blood 4.0 g/dL (2.2-4.0); Glucose, Blood 269.0 mg/dL (70-99); Potassium, Blood 4.4 mmol/L (3.5-5.5); Sodium, Blood 136.0 mmol/L (136-145); Total Protein, Blood 7.4 g/dL (6.4-8.2)
[2025-01-07 21:21] LABS: BASOPHILS ABSOLUTE AUTO 0.09 K/mm3 (0.00-0.23); BASOPHILS PERCENT AUTO 1 % (0-2); EOSINOPHILS ABSOLUTE AUTO 0.26 K/mm3 (0.00-0.68); EOSINOPHILS PERCENT AUTO 2 % (0-6); Hematocrit 42.8 % (33.0-51.0); Hemoglobin 14.2 g/dL (11.5-16.0); IMMATURE GRAN ABSOLUTE AUTO 0.06 K/mm3 (0.00-0.10); IMMATURE GRAN PERCENT AUTO 1 % (0-1); LYMPHOCYTES ABSOLUTE AUTO 1.69 K/mm3 (0.84-5.20); LYMPHOCYTES PERCENT AUTO 15 % (21-46); MONOCYTES ABSOLUTE AUTO 0.76 K/mm3 (0.16-1.47); MONOCYTES PERCENT AUTO 7 % (4-13); Mean Corpuscular HGB Conc 33.2 g/dL (31.5-36.5); Mean Corpuscular Volume 90 fL (80-100); NEUTROPHILS ABSOLUTE AUTO 8.68 K/mm3 (1.96-9.15); NEUTROPHILS PERCENT AUTO 75 % (41-73); NRBC ABSOLUTE 0.00 K/mm3 (0.00-0.02); NRBC Auto 0.0 /100 WBC (0.0-0.2); Platelet Count 231 K/mm3 (150-400); RDW Coefficient Variation 13.3 % (11.7-14.2); RDW Standard Deviation 44.4 fL (35.1-46.3)
[2025-01-07] MEDS ORDERED: CIPR250 PO (22:10)
[2025-01-07] MEDS ORDERED: RX Prepack 2 Tabs Ondansetron ODT 4MG UD ONE (22:10)
[2025-01-07 22:20] VITALS: BP 153/63
== END 2025-01-07 22:29 | disposition home or self-care (01) ==
LOC: ER 19:28
PROVIDERS: Student in an Organized Health Care Education/Training Program
DX: N12 Tubulo-interstitial nephritis, not specified as acute or chronic (principal); I10 Essential (primary) hypertension; Z88.2 Allergy status to sulfonamides; Z88.5 Allergy status to narcotic agent; Z88.8 Allergy status to other drugs, medicaments and biological substances; Z79.890 Hormone replacement therapy; Z79.899 Other long term (current) drug therapy; Z79.82 Long term (current) use of aspirin; Z79.4 Long term (current) use of insulin; J45.909 Unspecified asthma, uncomplicated; K21.9 Gastro-esophageal reflux disease without esophagitis; Z90.49 Acquired absence of other specified parts of digestive tract; Z90.711 Acquired absence of uterus with remaining cervical stump; Z87.891 Personal history of nicotine dependence; G47.33 Obstructive sleep apnea (adult) (pediatric)
CPT/HCPCS: 74176; 80053; 81001; 83690; 85025; 87077; 87086; 87186; 99284-25; A9270

== ENCOUNTER → 2025-01-07 | Outpatient (CLI) | payer OTHER ==
[~2025-01-07] MED LIST changes: +CIPR250 PO
== END ==
LOC: LAB SHORT 19:55 → LAB 19:55
DX: R31.9 Hematuria, unspecified (principal)
CPT/HCPCS: 87077; 87086; 87186

== ENCOUNTER → 2025-04-25 | Outpatient (CLI) | payer OTHER ==
[~2025-04-25] MED LIST changes: +CIPR250 PO
== END ==
LOC: LAB 16:19 → LAB SHORT 16:19
DX: N39.0 Urinary tract infection, site not specified (principal)
CPT/HCPCS: 87077; 87086; 87186